=== PATIENT | male | born 1955 | race Caucasian/White ===

== ENCOUNTER → 2023-09-12 07:54 | Outpatient (REF) | payer BC, SELFPAY | LOC: HWRAD 07:54 | PROVIDERS: ATTENDING PHYSICIAN Family Medicine | DX: E04.1 Nontoxic single thyroid nodule (principal); I77.810 Thoracic aortic ectasia | CPT/HCPCS: 76536; 93306 ==

== ENCOUNTER → 2024-07-09 09:33 | Outpatient (REF) | payer BC, SELFPAY | LOC: HWRAD 09:33 | PROVIDERS: ATTENDING PHYSICIAN Student in an Organized Health Care Education/Training Program | DX: R05.9 Cough, unspecified (principal) | CPT/HCPCS: 71046 ==

== ENCOUNTER → 2024-07-29 12:57 | Outpatient (REF) | payer BC, SELFPAY | LOC: RCS 12:57 | PROVIDERS: ATTENDING PHYSICIAN Internal Medicine Cardiovascular Disease; FAMILY PHYSICIAN Family Medicine | DX: I49.3 Ventricular premature depolarization (principal) | CPT/HCPCS: 93225; 93226 ==

== ENCOUNTER → 2024-08-12 09:18 | Outpatient (REF) | payer BC, SELFPAY | LOC: HWRAD 09:18 | PROVIDERS: ATTENDING PHYSICIAN Nurse Practitioner Adult Health; FAMILY PHYSICIAN Family Medicine | DX: J98.11 Atelectasis (principal) | CPT/HCPCS: 71046 ==